=== PATIENT | female | born 1995 | race Caucasian/White ===

== ENCOUNTER 2016-07-13 14:16 | Emergency (ER) | payer BC ==
[~2016-07-13] VITALS: Ht 165.1 cm; Wt 61.8 kg
[2016-07-13 14:18] VITALS: BP 110/66; PULSE 78; RESP 15; TEMP 98.2; O2SAT 99
--- NOTE | 2016-07-13 15:22 | PD ---
HPI Chief Complaint: Psychiatric Symptoms Time Seen by Provider: 15:15 Travel History International Travel<30 days: No Contact w/Intl Traveler<30days: No Traveled to known affect area: No History of Present Illness HPI This is a 21-year-old female who presents with parents for evaluation. Apparently for the past 7 years this patient suffered from anxiety and behavioral disturbance issues. Seems to have been escalating. She has occasional outbursts of screaming and being agitated. She reports that she has many life stressors including a relationship issue, stress regarding school and home life. The patient has a appointment with a psychiatrist in order to establish care with the psychiatrist in 2 days but her parents wanted her to be evaluated before then and so they brought her in today. The patient has had no suicidal or homicidal ideation, she denies depression. She has had no drug or alcohol abuse issues. She has had no hallucinations. She has no medical complaints at this time. PFSH Past Medical History ?: Not LMP: 06/07/2016 Social History Alcohol Use: No Tobacco Use: No Allergies-Medications (Allergen,Severity, Reaction): Coded Allergies: Penicillin (Verified Allergy, Unknown, 07/13/16) Reported Meds & Prescriptions Reported Meds & Active Scripts Active Vistaril (Hydroxyzine Pamoate) 50 Mg Cap 50 Mg PO QID PRN Review of Systems Except as stated in HPI: all other systems reviewed are Neg Physical Exam Narrative GENERAL: Well-developed well-nourished female in no acute distress SKIN: Warm and dry. HEAD: Atraumatic. Normocephalic. EYES: Pupils equal and round. No scleral icterus. No injection or drainage. ENT: No nasal bleeding or discharge. Mucous membranes pink and moist. NECK: Trachea midline. No JVD. CARDIOVASCULAR: Regular rate and rhythm. No murmur appreciated. RESPIRATORY: No accessory muscle use. Clear to auscultation. Breath sounds equal bilaterally. GASTROINTESTINAL: Abdomen soft, non-tender, nondistended. Hepatic and splenic margins not palpable. MUSCULOSKELETAL: No obvious deformities. NEUROLOGICAL: Awake and alert. No obvious cranial nerve deficits. Motor grossly within normal limits. Normal speech. PSYCHIATRIC: Somewhat anxious mood, insight and judgment appear normal. Data Data Last Documented VS Vital Signs Date Time Temp Pulse Resp B/P Pulse Ox O2 Delivery O2 Flow Rate FiO2 07/13/16 14:18 98.2 78 15 110/66 99 Orders Psych Screen (07/13/16 15:23) MDM Medical Decision Making Medical Screen Exam Complete: Yes Emergency Medical Condition: Yes Medical Record Reviewed: Yes Differential Diagnosis Generalized anxiety disorder, acute psychosis, schizophrenia, depression, adjustment reaction Narrative Course 21-year-old female who suffered from anxiety and outbursts of anger for several years presents with worsening symptoms over the past few weeks, appointment with a new psychiatrist to establish care in 2 days. The patient is currently exhibiting no evidence of psychosis or suicidal or homicidal ideation. I discussed with the parents what they would like to be done today and they are requesting a psychiatric screening. Mental health screening discussed with the patient. Psychiatric screen ordered. The patient has no medical issues or complaints at this time. She is medically cleared for psychiatric disposition. Diagnosis Primary Impression: Anxiety Scripts Hydroxyzine Pamoate (Vistaril)50 Mg Cap50 Mg PO QID PRN (ANXIETY) #30 CAP Prov:Angie Kelley MD 07/13/16 Jaswinder Menendez Jul 13, 2016 15:22
[2016-07-13] MEDS ORDERED: VIST50CA PO (19:56)
--- NOTE | 2016-07-13 20:01 | PD ---
Physical Exam Date Seen by Provider: Jul 13, 2016 Time Seen by Provider: 19:59 Data Data Last Documented VS Vital Signs Date Time Temp Pulse Resp B/P Pulse Ox O2 Delivery O2 Flow Rate FiO2 07/13/16 14:18 98.2 78 15 110/66 99 Orders Psych Screen (07/13/16 15:23) MDM Medical Record Reviewed: Yes Supervised Visit with CAIO: No Differential Diagnosis MDM: High Differential diagnoses: Schizophrenia, schizoaffective disorder, bipolar, anxiety, depression, adjustment reaction, mood disorder NOS, ODD, depressive disorder NOS, dementia, dementia with agitation, psychosis NOS, substance induced mood disorder, intermittent explosive disorder, Asperger syndrome, infection,electrolyte abnormality, malingering. Narrative Course Mental health screening discussed with the patient. Psychiatric screen ordered. The patient has been seen by the psych nurse practitioner. She feels that the patient is safe to go home. There is no indication for admission at this time. She has no suicidal homicidal ideation. Mora act is not indicated. She has advised me to write a prescription for Vistaril for her anxiety. She is given outpatient treatment information. This is anxiety Diagnosis Primary Impression: Anxiety Patient Instructions: General Instructions Additional Instruction: Rest. Vistaril for anxiety. Follow-up the recommendations of the psych screener. Return to the ER for emergencies. Med/Other Pt SpecificInfo: Prescription(s) given Scripts Hydroxyzine Pamoate (Vistaril)50 Mg Cap50 Mg PO QID PRN (ANXIETY) #30 CAP Prov:Angie Kelley MD 07/13/16 Disposition: 01 DISCHARGE HOME Condition: Stable Dieudonne Prajapati Jul 13, 2016 20:01
--- NOTE | 2016-07-13 20:12 | PD ---
History of Present Illness Chief Complaint: Psychiatric Symptoms Time Seen by Provider: 19:00 Travel History International Travel<30 Days: No Contact w/Intl Traveler<30days: No Known affected area: No Legal Status Legal Status: Voluntary History of Present Illness: History of Present Illness HPI This is a 21-year-old female with no previous psychiatric history who presents accompanied by her parents for psychiatric evaluation. The patient is sen with her parents in session and she was then seen by herself. EMR is reviewed and no previous contact with [facility] psychiatry dept. There is no substance use. Patient is alert and oriented female who is dressed casually and neatly. She appears stated age. She is engaging and cooperative. Speech is clear, fluent and logical. No thought process or content disturbance is noted. She denies any hallucinations, delusions or paranoia. There is no ramirez. Fund of knowledge is average. There is no suicidal or homicidal ideation. Mood is angry with no significant depression or anxiety. Patient's chief complaint is that her parents do not allow her to make decisions int erms of her boyfriend or what school to go to. She was enrolled at [employer] but had to withdraw after 3 semesters due to academic failure. While at [employer] she dated a young male and now wants her parent's to take her to [place] for her to spend some time with her boyfriend. The parents are absolutely against this. The family has been fighting about this and allegedly Chinyere has become agitated and aggressive. The father denies that she has become physical but that she has been yelling and gesturing towards them. Her parents agree with above description of events. They would like for her to make better decisions regarding the school she will attend as well as to who she will date and the amount of time she spends with her boyfriend. This is clearly not a psychiatric issue but rather a family issue.Nevertheless they would like to get a pill to help her " settle down abit". They have scheduled an appointment with a psychiatrist on Wednesday. PFSH Past Medical History ?: Not LMP: 06/07/2016 Psychiatric History Psychiatric History Hx Psychiatric Treatment: No previous hx History of Inpatient Treatment: No Guns or firearms in home: No Social History Single female. Lives with her parents. She is the youngest of 3 children. She was studying at [employer] but had to withdraw. Hx Alcohol Use: No Hx Tobacco Use: No Hx Substance Use: No Hx of Substance Use Treatment: No Family Psychiatric History Father with anxiety Allergies-Medications (Allergen,Severity, Reaction): Coded Allergies: Penicillin (Verified Allergy, Unknown, 07/13/16) Reported Meds & Prescriptions Reported Meds & Active Scripts Active Vistaril (Hydroxyzine Pamoate) 50 Mg Cap 50 Mg PO QID PRN Review of Systems Except as stated in HPI: all other systems reviewed are Neg Psychiatric: COMPLAINS OF: Agitation Exam Alert: Yes [place]: Person (ox4) Mood: Calm Affect: Euthymic Speech: Clear, Logical Eye Contact: Normal Memory Intact: Comment (No impairmetn) Hallucinations: Other (negative) Suicidal: Ideation (denies any) Homicidal: Ideation (Deneis any) Insight/Judgement Fair. Not impaired MDM Medical Decision Making Medical Record Reviewed: Yes Assessment/Plan Case discussed with Armand Prajapati Patient is cleared from psychiatry for discharge. She does not present any criteria for BA or for inpatient psychiatric care. Recommend Vistaril 25 mg po for anxiety. She has an appointment with Dr. Whitlock on Wednesday for psychiatric evaluation and treatment. 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
== END 2016-07-13 20:20 | disposition home or self-care (01) ==
LOC: NEPB 14:16
DX: F41.9 Anxiety disorder, unspecified (principal); F43.25 Adjustment disorder with mixed disturbance of emotions and conduct; Z86.59 Personal history of other mental and behavioral disorders
CPT/HCPCS: 99283